=== PATIENT | female | born 1985 | race Caucasian/White ===

== ENCOUNTER 2022-04-15 11:22 | Emergency (ER) | payer OTHER ==
[2022-04-15 13:06] LABS: BILIRUBIN NEGATIVE (NEGATIVE); BLOOD TRACE-INTACT Ery/uL (NEGATIVE); CLARITY HAZY (CLEAR); COLOR YELLOW (YELLOW); GLUCOSE (U) NORMAL (NORMAL); LEUKOCYTES 2+ Leu/uL (NEGATIVE); NITRITE NEGATIVE (NEGATIVE); PROTEIN NEGATIVE (NEGATIVE); SPECIFIC GRAVITY >=1.030 (1.001-1.030)
[2022-04-15 13:21] LABS: BACTERIA TRACE; SQUAMOUS EPITHELIAL CELLS >50
[2022-04-15 14:16] LABS: BASOPHIL 0.2 % (0-2); EOSINOPHIL 0.2 % (0-5); HCT 44.1 % (37.0-47.0); HGB 14.4 g/dl (12.5-16.0); LYMPHOCYTE 18.1 % (15-48); MCH 27.3 pg (25.0-31.0); MCHC 32.7 g/dL (32.0-36.0); MCV 83.5 fL (78.0-100.0); MONOCYTE 6.4 % (0-12); MPV 11.2 fL (6.0-9.5); NEUTROPHIL 74.7 % (41-80); NRBC 0; PLT 343 K/uL (150-400); RBC 5.28 M/uL (4.20-5.40); RDW 13.6 % (11.5-14.0); WBC 12.1 K/uL (4.0-10.5)
[2022-04-15 14:37] LABS: ALBUMIN 3.6 g/dL (3.4-5.0); BILIRUBIN - TOTAL 0.3 mg/dL (0.2-1.0); BUN/CREAT RATIO (CALC) 13.6 RATIO; CREATININE 0.88 mg/dL (0.51-0.95); GLOBULIN (CALCULATION) 4.5 g/dL; TOTAL PROTEIN 8.1 g/dL (6.4-8.2)
[2022-04-16] MEDS ORDERED: ONDANSETRON ODT4 MG PO (04:48)
[2022-04-16] MEDS ORDERED: PAXLOVID CO-PA1 EAC1 PO (04:48)
== END 2022-04-15 14:00 | disposition left against medical advice (07) ==
LOC: FER 11:22
PROVIDERS: Physician Assistant
DX: M54.50 Low back pain, unspecified (principal); R10.2 Pelvic and perineal pain; F17.210 Nicotine dependence, cigarettes, uncomplicated; Z53.29 Procedure and treatment not carried out because of patient's decision for other reasons; Z28.310 Unvaccinated for COVID-19
CPT/HCPCS: 36415; 80053; 81001; 83690; 85025; J1885

== ENCOUNTER 2022-04-16 02:58 | Emergency (ER) | payer OTHER ==
[2022-04-16 04:22] LABS: CORONAVIRUS 2019 SARS-COV-2 NEGATIVE (NEGATIVE); INFLUENZA A NAA NEGATIVE (NEGATIVE)
[2022-04-16] MEDS ORDERED: PAXLOVID CO-PA1 EAC1 PO (04:48)
[2022-04-16] MEDS ORDERED: ONDANSETRON ODT4 MG PO (04:48)
== END 2022-04-16 05:00 | disposition home or self-care (01) ==
LOC: FER 02:58
PROVIDERS: Emergency Medicine
DX: R53.83 Other fatigue (principal); R52 Pain, unspecified; R68.83 Chills (without fever); F17.200 Nicotine dependence, unspecified, uncomplicated; Z20.822 Contact with and (suspected) exposure to COVID-19
CPT/HCPCS: J1885; U0002